=== PATIENT | male | born 1945 | race Caucasian/White ===

== ENCOUNTER 2023-04-11 08:11 | Outpatient (CLI) | payer MEDICARE, OTHER | END 2023-04-11 08:12 | disposition home or self-care (01) | LOC: CSHCT 08:11 | PROVIDERS: ATTEND Specialist | DX: I71.20 Thoracic aortic aneurysm, without rupture, unspecified (principal); I51.7 Cardiomegaly; I25.10 Atherosclerotic heart disease of native coronary artery without angina pectoris; I25.84 Coronary atherosclerosis due to calcified coronary lesion | CPT/HCPCS: 71275; 82565 ==

== ENCOUNTER 2025-01-19 13:56 | Outpatient (CLI) | payer MEDICARE, OTHER ==
[~2025-01-19 13:56] MED LIST: Iopamidol 370 76% 100 ML VIAL ONE
== END 2025-01-19 13:57 | disposition home or self-care (01) ==
LOC: CSHCT 13:56
PROVIDERS: ATTEND Specialist
DX: I77.810 Thoracic aortic ectasia (principal)
CPT/HCPCS: 71275